=== PATIENT | female | born 1995 | race Two or more races ===

== ENCOUNTER → 2020-03-03 | Outpatient (CLI) | payer BC ==
--- NOTE | 2020-03-03 12:38 | RAD ---
EXAM: Pelvic sonogram. HISTORY: Vaginal bleeding. TECHNIQUE: Transabdominal and transvaginal sonographic imaging of the pelvis was performed. COMPARISON: None. FINDINGS: The uterus is measured at 8.7 x 5.7 x 4.4 cm. The endometrial stripe is 1.4 cm in thickness. The ovaries are normal in size and demonstrate normal blood flow. There are small bilateral ovarian antral follicles. There is no pelvic free fluid. IMPRESSION: 1. Prominent endometrial stripe thickness of 1.4 cm. This is within normal and score of the phase of the patient's menstrual cycle. No endometrial lesion is seen sonographically. 2. Unremarkable ovaries. Electronically signed by: Tarah Morrison MD (03/03/2020 12:35 PM) [id number]
== END | disposition home or self-care (01) ==
LOC: US 10:27
PROVIDERS: ATTEND Obstetrics & Gynecology
DX: N93.9 Abnormal uterine and vaginal bleeding, unspecified (principal)
CPT/HCPCS: 76830

== ENCOUNTER → 2020-04-13 | Outpatient (CLI) | payer BC ==
[2019-03-23 16:52] VITALS: BP 114/67
[~2020-04-13] MED LIST: IOHEXOL 300 MG/ML 100ML VIAL. INT CAT ONE
[2020-04-13 13:24] LABS: PREG TEST PT QUAL NEGATIVE (NEG)
== END | disposition home or self-care (01) ==
LOC: MERGE 12:43 → LAB 12:43
PROVIDERS: ATTEND Obstetrics & Gynecology
DX: N93.9 Abnormal uterine and vaginal bleeding, unspecified (principal)
CPT/HCPCS: 84703

== ENCOUNTER → 2020-04-14 | Outpatient (CLI) | payer BC ==
[2019-03-23 16:52] VITALS: BP 114/67
[~2020-04-14] MED LIST changes: -IOHEXOL 300 MG/ML 100ML VIAL. INT CAT ONE; +IOHEXOL 300 MG/ML 100ML VIAL. ONE
--- NOTE | 2020-04-14 17:19 | RAD ---
Hysterosalpingogram INDICATION: 24-year-old woman undergoing infertility evaluation. COMPARISON: Pelvic ultrasound 03/03/2020. TECHNIQUE AND FINDINGS: Informed consent was obtained and an appropriate procedural pause observed. Using a large speculum with a built-in lamp, a 5 Pashto balloon catheter was advanced into the endometrial cavity with clean technique and under fluoroscopy, a total of 30 mL of Omnipaque 300 was injected into the endometrial cavity. Sequential fluoroscopic images were obtained during filling of the endometrial cavity but showed some reflux of administered contrast material down the cervical canal into the vaginal canal. There is normal morphology of the endometrial cavity with no filling defects suspicious for masses or adhesions. The balloon catheter was repositioned closer to the internal os and under pressure, additional contrast was administered, resulting in complete filling of the right fallopian tube with intraperitoneal spillage of contrast material from the right fallopian tube. The left fallopian tube also distended and filled with contrast and the suggestion of early spilling of contrast material into the left peritoneal cavity though contrast flowed preferentially into the right fallopian tube and despite use of the balloon catheter to tamponade not the internal os, still retrograde spill of contrast down the cervical canal was observed. The balloon was deflated, catheter withdrawn and the speculum removed. Postprocedure instructions were reviewed and provided to the patient to tolerate the procedure without incident. I briefly discussed the preliminary findings with the patient prior to her discharge from the imaging suite and answered her questions. A total of 6 images were acquired for procedural documentation using a total of 1.2 minutes of fluoroscopy time. IMPRESSION: Hysterosalpingogram demonstrates wide patency of the right fallopian tube and probable patency of the left fallopian tube with normal shape and luminal contour of the endometrial cavity. Electronically signed by: Fei Garcia MD (04/14/2020 5:16 PM) [id number]
== END | disposition home or self-care (01) ==
LOC: RAD 09:40
PROVIDERS: ATTEND Obstetrics & Gynecology
DX: N93.8 Other specified abnormal uterine and vaginal bleeding (principal)
CPT/HCPCS: 58340; 74740